=== PATIENT | male | born 1940 | race Caucasian/White ===

== ENCOUNTER 2017-06-27 10:15 | Inpatient (IN) | payer MEDICARE ==
[~2017-06-27] VITALS: Ht 188 cm; Wt 83.7 kg
[~2017-06-27 10:15] MED LIST: LEVO75TA PO; METFORMIN
[2017-06-27] MEDS ORDERED: SODIUM CHLORIDE FLUSH 10ML SYR IVF ONE (11:00)
[2017-06-27 11:22] LABS: HEMATOCRIT 47.2 % (39.2-51.8); HEMOGLOBIN 15.6 g/dL (13.7-18.0); WHITE BLOOD COUNT 9.2 x10^3/uL (3.4-10)
[2017-06-27 11:35] LABS: BLOOD UREA NITROGEN 19 mg/dL (7-18)
[2017-06-27 11:40] LABS: IS PT STATUS REG ER OR PRE ER? YES
[2017-06-27] MEDS ORDERED: ASPIRIN 81 MG TABLET CHEW ONE (11:50)
[2017-06-27] MEDS ORDERED: ASPIRIN 81 MG TABLET CHEW PO ONE (12:00)
[2017-06-27 13:00] VITALS: BP 145/83
[2017-06-27] MEDS ORDERED: LEVO137T2 PO (15:23)
[2017-06-27] MEDS ORDERED: LISI5TAB7 PO (15:23)
[2017-06-27] MEDS ORDERED: METF500T27 PO (15:24)
[2017-06-27] MEDS ORDERED: POLYETHYLENE GLYCOL 17 GM PACKET PO PRN (16:00)
[2017-06-27] MEDS ORDERED: BISACODYL 10 MG SUPP PR PRN (16:00)
[2017-06-27] MEDS ORDERED: OXYcodone IR 5MG TABLET PO PRN (16:00)
[2017-06-27] MEDS ORDERED: ENALAPRILAT 1.25 MG/ML, 2ML IVPush PRN (16:00)
[2017-06-27] MEDS ORDERED: ACETAMINOPHEN 325 MG TABLET PO PRN (16:00)
[2017-06-27] MEDS ORDERED: hydrALAzine 20 MG/ML, 1ML IVPush PRN (16:00)
[2017-06-27] MEDS ORDERED: ONDANSETRON 2MG/ML, 2ML IVPush PRN (16:00)
[2017-06-27] MEDS ORDERED: DOCUSATE 100 MG CAPSULE PO PRN (16:00)
[2017-06-27] MEDS ORDERED: morphine SULFATE 10 MG/ML, 1ML IVPush PRN (16:00)
[2017-06-27] MEDS: HEPARIN 5,000 UNITS/ML, 1ML SQ SCH (16:07)
[2017-06-27] MEDS: SODIUM CHLORIDE 0.9% 1,000 ML IV SCH (16:07)
[2017-06-27 19:05] VITALS: BP 140/71
[2017-06-27] MEDS: metFORMIN XR 500 MG TAB.ER.24H PO SCH (20:49)
[2017-06-28 00:30] VITALS: BP 157/85
[2017-06-28] MEDS: HEPARIN 5,000 UNITS/ML, 1ML SQ SCH ×2 (01:28→08:30)
[2017-06-28] MEDS: SODIUM CHLORIDE 0.9% 1,000 ML IV SCH (01:28)
[2017-06-28 05:35] LABS: HEMATOCRIT 41.4 % (39.2-51.8); HEMOGLOBIN 13.8 g/dL (13.7-18.0)
[2017-06-28 05:48] LABS: ASPARTATE AMINO TRANSFERASE 17 U/L (15-37); BLOOD UREA NITROGEN 18 mg/dL (7-18)
[2017-06-28] MEDS ORDERED: LEVOTHYROXINE 137 MCG TABLET PO SCH (06:00)
[2017-06-28] MEDS ORDERED: ASPIRIN 325 MG TABLET EC PO SCH (06:00)
[2017-06-28 08:30] VITALS: BP 132/79
[2017-06-28] MEDS ORDERED: LISINOPRIL 5 MG TABLET PO SCH (09:00)
[2017-06-28] MEDS: metFORMIN XR 500 MG TAB.ER.24H PO SCH (09:04)
[2017-06-28] MEDS ORDERED: CHOLECALCIFEROL 1,000 UNIT TABLET PO SCH (10:30)
[2017-06-28] MEDS ORDERED: ASPI-621 PO (10:50)
[2017-06-28] MEDS ORDERED: ATOR20TA PO (10:50)
[2017-06-28] MEDS ORDERED: LISI-170 PO (10:50)
[2017-06-28] MEDS ORDERED: CLOP75TA52 PO (10:50)
[2017-06-28] MEDS ORDERED: LEVO112T2 PO (11:31)
[2017-06-28] MEDS ORDERED: CHOL200040 PO (11:33)
== END 2017-06-28 11:51 | disposition left against medical advice (07) | DRG 64 ==
LOC: ED 10:33 → EDIP 11:57 → 4EST 12:59
PROVIDERS: ADMIT Hospitalist; ATTEND Hospitalist
DX: I63.512 Cerebral infarction due to unspecified occlusion or stenosis of left middle cerebral artery (principal); N17.0 Acute kidney failure with tubular necrosis; E03.9 Hypothyroidism, unspecified; E11.65 Type 2 diabetes mellitus with hyperglycemia; E55.9 Vitamin D deficiency, unspecified; E78.5 Hyperlipidemia, unspecified; I10 Essential (primary) hypertension; J32.9 Chronic sinusitis, unspecified; R47.89 Other speech disturbances
CPT/HCPCS: 36415; 70450; 80048; 80053; 80061; 81003; 82040; 82140; 82306; 82607; 82962; 83036; 83735; 84439; 84443; 84484; 85025; 93005; 93880; 99285; J1644; J7030

== ENCOUNTER 2018-06-06 12:05 | Emergency (ER) | payer MEDICARE ==
[~2018-06-06] VITALS: Ht 188 cm; Wt 73.5 kg
[~2018-06-06 12:05] MED LIST changes: +ASPI-621 PO; +ATOR20TA PO; +CHOL200040 PO; +CLOP75TA52 PO; +LEVO112T2 PO; +LEVO137T2 PO; +LISI-170 PO; +LISI5TAB7 PO; +METF500T27 PO
[2018-06-06] MEDS ORDERED: CALCIUM PEG (12:33)
[2018-06-06] MEDS ORDERED: PLEASE ENTER ALLERGIES MC SCH (13:00)
[2018-06-06] MEDS ORDERED: ASPIRIN 81 MG TABLET CHEW ONE (13:15)
[2018-06-06 13:24] LABS: INTERNATIONAL NORMALIZED RATIO 1.02 (0.93-1.1); PROTHROMBIN TIME 10.5 Seconds (9.6-11.5)
[2018-06-06 13:25] LABS: ALBUMIN 3.6 g/dL (3.4-5.0); ANION GAP 8 mmol/L (5-15); BASOPHILS # (AUTO) 0.01 x10^3/uL (0-0.1); BASOPHILS % (AUTO) 0 % (0-1); CALCIUM 9.6 mg/dL (8.5-10.1); CHLORIDE 100 mmol/L (98-107); EOSINOPHILS % (AUTO) 2 % (1-7); LYMPHOCYTES # (AUTO) 1.44 x10^3/uL (1-3.4); LYMPHOCYTES % (AUTO) 15 % (22-44); MD NO; MEAN CORPUSCULAR HEMOGLOBIN 29.9 pg (27.5-34.5); MEAN CORPUSCULAR HGB CONC 32.9 g/dL (33.2-36.2); MEAN CORPUSCULAR VOLUME 90.6 fL (81-97); MEAN PLATELET VOLUME 8.9 fL (7.4-10.4); MONOCYTES # (AUTO) 0.71 x10^3/uL (0.2-0.8); MONOCYTES % (AUTO) 7 % (2-9); NEUTROPHILS % (AUTO) 75 % (42-75); PLATELET COUNT 306 x10^3/uL (130-400); RED BLOOD COUNT 5.44 x10^6/uL (4.38-5.82); RED CELL DISTRIBUTION WIDTH 13.3 % (9.4-14.8)
[2018-06-06 13:29] LABS: ALANINE AMINOTRANSFERASE 27 U/L (12-78); ALKALINE PHOSPHATASE 78 U/L (45-117); TOTAL PROTEIN 7.4 g/dL (6.4-8.2)
[2018-06-06] MEDS ORDERED: ASPIRIN 81 MG TABLET CHEW PO ONE (13:30)
[2018-06-06] MEDS ORDERED: SODIUM CHLORIDE FLUSH 10ML SYR IVF ONE (14:00)
[2018-06-06] MEDS ORDERED: SODIUM CHLORIDE 0.9% 1,000 ML IV ONE (14:00)
[2018-06-06] MEDS ORDERED: SODIUM CHLORIDE 0.9% 1,000ML IVBOLUS ONE (14:00)
[2018-06-06 14:30] VITALS: BP 127/88
== END 2018-06-06 15:24 | disposition left against medical advice (07) ==
LOC: ED 12:45
DX: I63.9 Cerebral infarction, unspecified (principal); E11.9 Type 2 diabetes mellitus without complications
CPT/HCPCS: 36415; 70450; 80053; 85025; 85610; 85730; 93005; 99285; J7030

== ENCOUNTER 2018-06-07 15:52 | Inpatient (IN) | payer MEDICARE ==
[~2018-06-07] VITALS: Ht 188 cm; Wt 79.8 kg
[~2018-06-07 15:52] MED LIST changes: +CALCIUM PEG
[2018-06-07 17:21] LABS: ANION GAP 10 mmol/L (5-15); CALCIUM 8.9 mg/dL (8.5-10.1); CHLORIDE 105 mmol/L (98-107); CREATININE 1.42 mg/dL (0.7-1.3)
[2018-06-07 17:23] LABS: CREATINE KINASE, TOTAL 234 U/L (39-308)
[2018-06-07] MEDS ORDERED: ONDANSETRON 2MG/ML, 2ML IVPush PRN (17:30)
[2018-06-07] MEDS ORDERED: DEXTROSE 50%, 50ML SYRINGE IVPush PRN (17:30)
[2018-06-07] MEDS ORDERED: DEXTROSE 4 GM TAB.CHEW PO PRN (17:30)
[2018-06-07] MEDS ORDERED: GLUCAGON 1 MG IM PRN (17:30)
[2018-06-07] MEDS ORDERED: ACETAMINOPHEN 325 MG TABLET PO PRN (17:30)
[2018-06-07] MEDS ORDERED: LABETALOL 5MG/ML, 20ML IV PRN (17:30)
[2018-06-07 18:15] VITALS: BP 148/87
[2018-06-07] MEDS: SODIUM CHLORIDE 0.9% 1,000 ML IV SCH (21:52)
[2018-06-07] MEDS: ATORVASTATIN 80 MG TABLET PO SCH ×2 (21:52→22:01)
[2018-06-07] MEDS: SODIUM CHLORIDE FLUSH 10ML SYR IVF SCH (21:52)
[2018-06-07] MEDS: INSULIN GLARGINE 100 UNITS/ML, PEN SQ-INSULIN SCH (21:57)
[2018-06-07] MEDS ORDERED: INSULIN LISPRO 100 UNITS/ML, PEN SQ-INSULIN SCH (23:00)
[2018-06-08 00:41] VITALS: BP 148/88
[2018-06-08 00:43] VITALS: BP 148/87
[2018-06-08] MEDS: SODIUM CHLORIDE 0.9% 1,000 ML IV SCH ×3 (06:00→21:37)
[2018-06-08 07:20] LABS: ANION GAP 7 mmol/L (5-15); CALCIUM 8.5 mg/dL (8.5-10.1); CHLORIDE 107 mmol/L (98-107); CREATININE 1.31 mg/dL (0.7-1.3)
[2018-06-08] MEDS: INSULIN LISPRO 100 UNITS/ML, PEN SQ-INSULIN SCH ×4 (08:33→21:38)
[2018-06-08] MEDS: ASPIRIN 81 MG TABLET CHEW PO/NG SCH (08:34)
[2018-06-08] MEDS ORDERED: ASPIRIN 300 MG SUPP PR SCH (09:00)
[2018-06-08 10:20] VITALS: BP 154/97
[2018-06-08] MEDS: SODIUM CHLORIDE FLUSH 10ML SYR IVF SCH ×2 (10:54→21:38)
[2018-06-08] MEDS ORDERED: ASPIRIN 325 MG TABLET PO ONE (11:00)
[2018-06-08 12:04] VITALS: BP 165/98
[2018-06-08 13:19] LABS: CHOL/HDL RATIO 5.6; LDL/HDL RATIO 3.8 (0.5-3.0)
[2018-06-08 13:29] LABS: FREE T4 (FREE THYROXINE) 0.9 ng/dL (0.76-1.46)
[2018-06-08 19:23] VITALS: BP 156/89
[2018-06-08 19:23] LABS: HEMOGLOBIN A1C 13.6 % (4.2-6.3)
[2018-06-08] MEDS: INSULIN GLARGINE 100 UNITS/ML, PEN SQ-INSULIN SCH (21:38)
[2018-06-09 02:13] VITALS: BP 129/81
[2018-06-09 05:35] LABS: BASOPHILS # (AUTO) 0.05 x10^3/uL (0-0.1); BASOPHILS % (AUTO) 1 % (0-1); EOSINOPHILS # (AUTO) 0.34 x10^3/uL (0-0.4); EOSINOPHILS % (AUTO) 4 % (1-7); LYMPHOCYTES # (AUTO) 2.15 x10^3/uL (1-3.4); LYMPHOCYTES % (AUTO) 25 % (22-44); MD NO; MEAN CORPUSCULAR HEMOGLOBIN 30.3 pg (27.5-34.5); MEAN CORPUSCULAR HGB CONC 33.3 g/dL (33.2-36.2); MEAN CORPUSCULAR VOLUME 90.9 fL (81-97); MEAN PLATELET VOLUME 8.9 fL (7.4-10.4); MONOCYTES # (AUTO) 0.79 x10^3/uL (0.2-0.8); MONOCYTES % (AUTO) 9 % (2-9); NEUTROPHILS # (AUTO) 5.32 x10^3/uL (1.8-6.8); NEUTROPHILS % (AUTO) 62 % (42-75); PLATELET COUNT 299 x10^3/uL (130-400); RED BLOOD COUNT 4.95 x10^6/uL (4.38-5.82); RED CELL DISTRIBUTION WIDTH 13.8 % (9.4-14.8)
[2018-06-09 05:43] LABS: CALCIUM 8.6 mg/dL (8.5-10.1); CHLORIDE 109 mmol/L (98-107)
[2018-06-09 05:46] LABS: ANION GAP 8 mmol/L (5-15); CREATININE 1.14 mg/dL (0.7-1.3)
[2018-06-09] MEDS: LEVOTHYROXINE 100 MCG TABLET PO SCH (06:03)
[2018-06-09] MEDS: SODIUM CHLORIDE 0.9% 1,000 ML IV SCH (06:03)
[2018-06-09 06:56] VITALS: BP 135/78
[2018-06-09] MEDS: INSULIN LISPRO 100 UNITS/ML, PEN SQ-INSULIN SCH ×4 (08:50→21:45)
[2018-06-09] MEDS: SODIUM CHLORIDE FLUSH 10ML SYR IVF SCH ×2 (08:50→21:46)
[2018-06-09] MEDS: ASPIRIN 81 MG TABLET CHEW PO/NG SCH (08:51)
[2018-06-09 12:27] VITALS: BP 122/72
[2018-06-09 19:19] VITALS: BP 134/74
[2018-06-09] MEDS: INSULIN GLARGINE 100 UNITS/ML, PEN SQ-INSULIN SCH (21:45)
[2018-06-09] MEDS: ATORVASTATIN 80 MG TABLET PO SCH (21:45)
[2018-06-10 01:59] VITALS: BP 113/74
[2018-06-10] MEDS: LEVOTHYROXINE 100 MCG TABLET PO SCH (05:52)
[2018-06-10 07:34] VITALS: BP 128/78
[2018-06-10] MEDS: INSULIN LISPRO 100 UNITS/ML, PEN SQ-INSULIN SCH ×2 (08:28→11:00)
[2018-06-10] MEDS: ASPIRIN 81 MG TABLET CHEW PO/NG SCH (08:28)
[2018-06-10] MEDS: SODIUM CHLORIDE FLUSH 10ML SYR IVF SCH (08:28)
[2018-06-10] MEDS ORDERED: SENNA/DOCUSATE TABLET PO PRN (09:30)
[2018-06-10 12:40] VITALS: BP 160/85
== END 2018-06-10 13:39 | disposition left against medical advice (07) | DRG 40 ==
LOC: ED 17:31 → EDIP 17:36 → 4WST 17:43 → 4EST 06-08 20:12
PROVIDERS: ADMIT Internal Medicine; ATTEND Family Medicine
PROC: 0JH632Z Insertion of Monitoring Device into Chest Subcutaneous Tissue and Fascia, Percutaneous Approach (ICD-10-PCS; principal; 2018-06-09)
DX: I63.9 Cerebral infarction, unspecified (principal); N17.0 Acute kidney failure with tubular necrosis; D75.1 Secondary polycythemia; R29.810 Facial weakness; R13.10 Dysphagia, unspecified; I10 Essential (primary) hypertension; E78.5 Hyperlipidemia, unspecified; E55.9 Vitamin D deficiency, unspecified; E03.9 Hypothyroidism, unspecified; I48.0 Paroxysmal atrial fibrillation; Z91.19 Patient's noncompliance with other medical treatment and regimen; Z79.82 Long term (current) use of aspirin; Z79.02 Long term (current) use of antithrombotics/antiplatelets; Z65.3 Problems related to other legal circumstances; Z90.89 Acquired absence of other organs; Z88.2 Allergy status to sulfonamides; Z79.899 Other long term (current) drug therapy; Z79.1 Long term (current) use of non-steroidal anti-inflammatories (NSAID); Z79.2 Long term (current) use of antibiotics
CPT/HCPCS: 0399T; 33282; 36415; 70551; 80048; 80061; 82550; 82962; 83036; 84439; 84443; 85025; 93306; 93880; 99285; C1764; G0378; 92523-GN; J1815; J7030

== ENCOUNTER 2018-11-13 10:26 | Day surgery (SDC) | payer MEDICARE ==
[~2018-11-13 10:26] MED LIST changes: -ASPI-621 PO; +ASPI81TA45 PO
[2018-11-13] MEDS ORDERED: LIDOCAINE-MPF 1%, 5ML ONE (10:46)
== END 2018-11-13 11:46 | disposition home or self-care (01) ==
LOC: CACL 10:26
PROVIDERS: ATTEND Internal Medicine Cardiovascular Disease
DX: Z45.09 Encounter for adjustment and management of other cardiac device (principal); E03.9 Hypothyroidism, unspecified; I10 Essential (primary) hypertension; E11.319 Type 2 diabetes mellitus with unspecified diabetic retinopathy without macular edema; E78.00 Pure hypercholesterolemia, unspecified; E11.39 Type 2 diabetes mellitus with other diabetic ophthalmic complication; Z79.82 Long term (current) use of aspirin; Z88.1 Allergy status to other antibiotic agents; Z79.84 Long term (current) use of oral hypoglycemic drugs
CPT/HCPCS: 33286